=== PATIENT | male | born 1970 | race Caucasian/White ===

== ENCOUNTER 2025-04-17 12:15 | Inpatient (IN) | payer BC ==
[~2025-04-17] VITALS: Ht 185.4 cm; Wt 107.0 kg
[2025-04-17] MEDS ORDERED: SIMETHICONE 80MG CHEW TAB PO PRN (12:50)
[2025-04-17] MEDS ORDERED: BISACODYL 10 MG SUPP PR PRN (12:50)
[2025-04-17] MEDS ORDERED: BISACODYL 5 MG TAB PO PRN (12:50)
[2025-04-17] MEDS ORDERED: ONDANSETRON 4MG ORAL DISINTEGRATING TAB PO PRN (12:50)
[2025-04-17] MEDS ORDERED: MAALOX 30 ML SUSP *UDC PO PRN (12:50)
[2025-04-17] MEDS ORDERED: MOM 30 ML SUSPENSION UDC PO PRN (12:50)
[2025-04-17 14:20] VITALS: BP 131/89; TEMP 98.2; O2SAT 97
[2025-04-17] MEDS ORDERED: ACET-897 PO (16:04)
[2025-04-17] MEDS ORDERED: CLOP75TA2 PO (16:04)
[2025-04-17] MEDS ORDERED: THIA100T7 PO (16:04)
[2025-04-17] MEDS ORDERED: ATOR40TA75 PO (16:05)
[2025-04-17] MEDS ORDERED: ASPI81CH33 PO (16:05)
[2025-04-17] MEDS ORDERED: HOME MED LIST COMPLETE! XX SCH (16:10)
[2025-04-17 20:00] VITALS: BP 145/83; TEMP 98.3; O2SAT 95
[2025-04-17] MEDS: ACETAMINOPHEN 325 MG TAB PO PRN (20:46)
[2025-04-17] MEDS: DOCUSATE SODIUM 100 MG CAPSULE PO SCH (21:00)
[2025-04-17] MEDS: SENNA 8.6 MG TAB PO SCH (21:00)
[2025-04-17] MEDS: ATORVASTATIN 20 MG TAB PO SCH (21:49)
[2025-04-17] MEDS: RAMELTEON 8 MG TAB PO SCH (21:49)
[2025-04-18 04:00] VITALS: BP 165/75; TEMP 97.5; O2SAT 96
[2025-04-18 06:46] LABS: BASO # 0.0 10^3/uL (0.0-0.2); BASO % 0.6 % (0.0-1.0); EOS # 0.2 10^3/uL (0.0-0.5); EOS % 2.4 % (0.0-3.0); LYMPH # 0.6 10^3/uL (1.5-5.0); LYMPH % 8.2 % (24.0-44.0); MONO # 0.9 10^3/uL (0.0-0.8); MONO % 13.5 % (2.0-8.0); NEUTROPHILS # 5.0 10^3/uL (1.5-8.5); NEUTROPHILS % 74.6 % (36.0-66.0); PLATELET COUNT, AUTOMATED 285 10^3/uL (150-450)
[2025-04-18 07:15] LABS: ALT/SGPT 26 U/L (7.0-40); AST/SGOT 20 U/L (<34); CALCIUM LEVEL 9.3 MG/DL (8.5-10.1); CARBON DIOXIDE LEVEL 27 MMOL/L (20-31); CHLORIDE LEVEL 101 MMOL/L (98-107); CREATININE FOR GFR 0.75 MG/DL (0.70-1.30); GLOMERULAR FILTRATION RATE > 90.0 (>56); POTASSIUM SERUM 4.3 MMOL/L (3.5-5.1); SODIUM LEVEL 140 MMOL/L (136-145)
[2025-04-18] MEDS: ASPIRIN 81 MG CHEWABLE TABLET PO SCH (07:48)
[2025-04-18] MEDS: ENOXAPARIN 40 MG/0.4 ML SYRINGE (J1650 PER 10MG) SC SCH (07:49)
[2025-04-18] MEDS: THIAMINE 100 MG TAB PO SCH (07:50)
[2025-04-18] MEDS: CLOPIDOGREL 75 MG TAB PO SCH (07:50)
[2025-04-18] MEDS: LIDOCAINE 5% PATCH TD SCH (10:15)
[2025-04-18] MEDS: FAMOTIDINE 20 MG TAB PO SCH (10:16)
[2025-04-18 12:16] VITALS: BP 118/84; TEMP 97.5; O2SAT 97
[2025-04-18] MEDS: amLODIPine 5 MG TAB PO SCH (12:28)
[2025-04-18] MEDS: ACETAMINOPHEN 500 MG TAB PO SCH (15:16)
[2025-04-18 19:48] VITALS: BP 135/81; TEMP 98.8; O2SAT 98
[2025-04-19 03:57] VITALS: BP 152/75; TEMP 97.4; O2SAT 97
[2025-04-19 12:00] VITALS: BP 136/85; TEMP 97.1; O2SAT 98
[2025-04-19 19:40] VITALS: BP 141/89; TEMP 97.2; O2SAT 99
[2025-04-20] MEDS: ACETAMINOPHEN 325 MG TAB PO PRN (01:52)
[2025-04-20 04:00] VITALS: BP 137/96; TEMP 97.2; O2SAT 96
[2025-04-20 11:35] VITALS: BP 145/69; TEMP 97; O2SAT 98
[2025-04-20 19:52] VITALS: BP 143/75; TEMP 97.9; O2SAT 97
[2025-04-21 04:21] VITALS: BP 130/87; TEMP 97.6; O2SAT 97
[2025-04-21 11:56] VITALS: BP 132/80; TEMP 97.2; O2SAT 98
[2025-04-21 20:00] VITALS: BP 151/80; TEMP 99.1; O2SAT 96
[2025-04-21] MEDS: traZODone 50 MG TAB PO PRN (20:49)
[2025-04-21] MEDS: FAMOTIDINE 20 MG TAB PO SCH (20:49)
[2025-04-21] MEDS: NAPROXEN 250 MG TAB PO SCH (20:50)
[2025-04-22 04:00] VITALS: BP 161/75; TEMP 97; O2SAT 99
[2025-04-22 04:54] VITALS: BP 148/76; O2SAT 99
[2025-04-22 12:00] VITALS: BP 117/80; TEMP 97.3; O2SAT 100
[2025-04-22 20:00] VITALS: BP 128/66; TEMP 97.4; O2SAT 97
[2025-04-22] MEDS: LIDOCAINE 5% PATCH TD SCH (21:00)
[2025-04-23 04:00] VITALS: BP 153/77; TEMP 96.9; O2SAT 98
[2025-04-23 08:02] VITALS: BP 151/78
[2025-04-23 12:00] VITALS: BP 127/65; TEMP 96.7; O2SAT 98
[2025-04-23 20:00] VITALS: BP 122/74; TEMP 97.2; O2SAT 96
[2025-04-24 04:00] VITALS: BP 160/77; TEMP 97.1; O2SAT 98
[2025-04-24 12:00] VITALS: BP 127/80; TEMP 97.2; O2SAT 98
[2025-04-24 20:00] VITALS: BP 150/73; TEMP 97.8; O2SAT 96
[2025-04-25 04:00] VITALS: BP 162/96; TEMP 97.6; O2SAT 99
[2025-04-25 07:42] VITALS: BP 152/68
[2025-04-25 12:00] VITALS: BP 130/74; TEMP 97.6; O2SAT 99
[2025-04-25 20:00] VITALS: BP 160/79; TEMP 97.8; O2SAT 99
[2025-04-26 04:00] VITALS: BP 150/80; TEMP 97.4; O2SAT 96
[2025-04-26 12:38] VITALS: BP 157/71; TEMP 97.9; O2SAT 98
[2025-04-26 20:00] VITALS: BP 131/87; TEMP 97.3; O2SAT 97
[2025-04-27 04:00] VITALS: BP 163/80; TEMP 97.1; O2SAT 100
[2025-04-27 12:00] VITALS: BP 146/86; TEMP 97.5; O2SAT 98
[2025-04-27 20:00] VITALS: BP 148/66; TEMP 98; O2SAT 97
[2025-04-28 04:00] VITALS: BP 162/88; TEMP 97.3; O2SAT 95
[2025-04-28 12:00] VITALS: BP 157/70; TEMP 97.1; O2SAT 97
[2025-04-28 20:00] VITALS: BP 138/91; TEMP 97.6; O2SAT 95
[2025-04-29 04:00] VITALS: BP 169/77; TEMP 97.7; O2SAT 97
[2025-04-29 12:00] VITALS: BP 130/65; TEMP 97; O2SAT 97
[2025-04-29] MEDS ORDERED: LIDO5TD TD (16:32)
[2025-04-29] MEDS ORDERED: DULO1CAP4 PO (16:32)
[2025-04-29] MEDS ORDERED: ATOR40TA75 PO (16:32)
[2025-04-29] MEDS ORDERED: CLOP75TA2 PO (16:32)
[2025-04-29] MEDS ORDERED: SENN18TA PO (16:32)
[2025-04-29] MEDS ORDERED: COLA100C5 PO (16:32)
[2025-04-29] MEDS ORDERED: FAMO20TA PO (16:32)
[2025-04-29] MEDS ORDERED: AMLO1TAB24 PO (16:32)
[2025-04-29 20:00] VITALS: BP 151/80; TEMP 97.8; O2SAT 97
[2025-04-30 04:00] VITALS: BP 162/80; TEMP 97.6; O2SAT 97
[2025-04-30 09:42] VITALS: BP 162/80
== END 2025-04-30 11:35 | disposition home or self-care (01) | DRG 45 ==
LOC: M PM&R 14:40
PROVIDERS: ADMIT Physical Medicine & Rehabilitation; ATTEND Physical Medicine & Rehabilitation
DX: I63.9 Cerebral infarction, unspecified (principal); I11.0 Hypertensive heart disease with heart failure; I50.32 Chronic diastolic (congestive) heart failure; R47.01 Aphasia; E78.5 Hyperlipidemia, unspecified; M06.9 Rheumatoid arthritis, unspecified; R53.1 Weakness; M54.9 Dorsalgia, unspecified; G47.00 Insomnia, unspecified; D64.9 Anemia, unspecified; R00.1 Bradycardia, unspecified; K21.9 Gastro-esophageal reflux disease without esophagitis; M25.569 Pain in unspecified knee; H53.2 Diplopia; R74.01 Elevation of levels of liver transaminase levels; Z74.1 Need for assistance with personal care; Z74.09 Other reduced mobility; Z79.01 Long term (current) use of anticoagulants; Z79.82 Long term (current) use of aspirin; Z79.899 Other long term (current) drug therapy